=== PATIENT | female | born 1940 | race Caucasian/White ===

== ENCOUNTER 2016-07-30 08:19 | Day surgery (SDC) | payer MEDICARE, OTHER ==
[~2016-07-30] VITALS: Ht 165.1 cm; Wt 65.0 kg
[~2016-07-30 08:19] MED LIST: 0.9% Sodium Chloride 1,000 ML IV SCH; CALC600T12 PO; LOVA40TA AD; OMEP20CA11 PO; PRED5DRO6 OP; Sodium Chloride LOK Flush 10 mL Syringe IV PRN; fentaNYL-PF 50 mCg/mL 2 mL Inj IVPUSH PRN
[2016-07-30 08:53] VITALS: BP 145/81; PULSE 81; RESP 14; O2SAT 97
[2016-07-30 09:49] VITALS: BP 143/73; PULSE 69; RESP 14; O2SAT 92
[2016-07-30 10:02] VITALS: BP 146/78; PULSE 80; RESP 14; O2SAT 96
--- NOTE | 2016-07-30 23:05 | ENDO ---
[address] [address] ENDOSCOPY PROCEDURE PATIENT: HOWARD GAGNON : 1940 MR#: [id number] ADMIT: 07/30/2016 JOB ID: [id number] DATE OF PROCEDURE: 07/30/2016 PROCEDURE: Colonoscopy into terminal ileum. PREOPERATIVE DIAGNOSIS(ES): Family history of colon cancer. POSTOPERATIVE DIAGNOSIS(ES): Diffuse diverticulosis. SURGEON: Logan Duggan MD. INDICATIONS: A 75-year-old female who has a family history of colon cancer. She is here for screening. She has not had a colonoscopy for 16 years. FINDINGS: She had a good prep. The scope was advanced into the terminal ileum. It was withdrawn over 6 minutes 59 seconds. Other than diffuse diverticulosis there were no abnormalities. Retroflexed views of the rectum were obtained and they were normal. DESCRIPTION OF PROCEDURE: The procedure and sedation plan was discussed with the patient and nursing staff, and a procedural time-out was held. She received 3 mg of Versed and 75 mcg of fentanyl. Digital rectal exam was performed and the Olympus PCF-H180AL video colonoscope was passed transanally and advanced to the cecum, withdrawn over 6 minutes 59 seconds with results stated above. Retroflexed views of the rectum were obtained. No biopsies were taken. There were no apparent complications. The patient tolerated the procedure well. IMPRESSION: Diffuse diverticulosis, otherwise normal colonoscopy into terminal ileum. RECOMMENDATIONS: Colonoscopy in five years, if her health is otherwise stable and doing well, because of her family history of colon cancer.
== END 2016-07-30 23:59 | disposition home or self-care (01) ==
LOC: END 08:19
PROVIDERS: ATTEND Surgery
DX: Z12.11 Encounter for screening for malignant neoplasm of colon (principal); Z80.0 Family history of malignant neoplasm of digestive organs; K57.30 Diverticulosis of large intestine without perforation or abscess without bleeding; E78.5 Hyperlipidemia, unspecified; D69.6 Thrombocytopenia, unspecified; K21.9 Gastro-esophageal reflux disease without esophagitis; H20.9 Unspecified iridocyclitis; E78.00 Pure hypercholesterolemia, unspecified